=== PATIENT | male | born 1975 | race Two or more races ===

== ENCOUNTER 2024-01-22 11:22 | Outpatient (CLI) | payer OTHER ==
[~2024-01-22 11:22] MED LIST: DEPAKOTE ER500 MG; SEROQUEL XR300 MG
== END 2024-01-22 11:27 | disposition home or self-care (01) ==
LOC: RAD 11:22
PROVIDERS: ATTEND Orthopaedic Surgery Orthopaedic Surgery of the Spine
DX: Z98.1 Arthrodesis status (principal)

== ENCOUNTER 2024-11-21 16:18 | Outpatient (CLI) | payer OTHER | END 2024-11-21 16:22 | disposition home or self-care (01) | LOC: RAD 16:18 | PROVIDERS: ATTEND Family Medicine Geriatric Medicine | DX: M25.569 Pain in unspecified knee (principal); Z71.89 Other specified counseling; G45.3 Amaurosis fugax; F31.9 Bipolar disorder, unspecified; K80.20 Calculus of gallbladder without cholecystitis without obstruction; F10.21 Alcohol dependence, in remission; M54.9 Dorsalgia, unspecified; F19.21 Other psychoactive substance dependence, in remission; E16.2 Hypoglycemia, unspecified; E03.9 Hypothyroidism, unspecified; E73.9 Lactose intolerance, unspecified; G43.909 Migraine, unspecified, not intractable, without status migrainosus; E78.2 Mixed hyperlipidemia; G47.33 Obstructive sleep apnea (adult) (pediatric); M43.16 Spondylolisthesis, lumbar region ==

== ENCOUNTER 2025-01-28 12:45 | Outpatient (CLI) | payer OTHER | END 2025-01-28 12:57 | disposition home or self-care (01) | LOC: RAD 12:45 | PROVIDERS: ATTEND Orthopaedic Surgery Orthopaedic Surgery of the Spine | DX: Z98.1 Arthrodesis status (principal) ==